=== PATIENT | male | born 1995 | race Caucasian/White ===

== ENCOUNTER 2022-01-19 15:30 | Emergency (ER) | payer BC, SELFPAY ==
[2022-01-19] VITALS (7 sets, daily range): BP systolic 125–148; BP diastolic 78–101; PULSE 57–86; RESP 16–18; TEMP 36.8; O2SAT 97–100; BMI 22.7
--- NOTE | 2022-01-19 15:38 | XRR_ITS ---
PROCEDURE INFORMATION: Exam: XR Chest Exam date and time: 01/19/2022 4:30 PM Age: 26 years old Clinical indication: Other: Vomiting blood TECHNIQUE: Imaging protocol: XR of the chest. Views: 1 view. COMPARISON: No relevant prior studies available. FINDINGS: Lungs: Unremarkable. No consolidation. Pleural spaces: Unremarkable. No pleural effusion. No pneumothorax. Heart/Mediastinum: Unremarkable. No cardiomegaly. Bones/joints: Unremarkable. XR/XR chest 1V portable [id number] IMPRESSION: No acute findings.
[2022-01-19 16:58] LABS: Basophils % 0.2 %; Eosinophils % 0.1 %; Hemoglobin 17.4 g/dL (11.7-16.6); Lymphocytes # 1.2 10^3/uL (0.8-4.8); Lymphocytes % 13.9 %; Mean Corpuscular HGB Conc 33.5 g/dL (30.0-36.0); Mean Corpuscular Hemoglobin 29.3 pg (28.0-34.0); Mean Corpuscular Volume 87.7 fl (80-94); Mean Platelet Volume 12.8 fL (7.4-10.4); Monocytes # 0.9 10^3/uL (0.2-0.9); Neutrophils # 6.38 10^3/uL (1.8-7.7); Neutrophils % 75.6 %; Nucleated Red Blood Cells % 0 %; Platelet Count 155 10^3/cmm (130-400); Red Blood Count 5.93 10^6/uL (4.1-5.3); Red Cell Distribution Width 12.6 % (12.1-15.1); White Blood Count 8.5 10^3/uL (4.0-10.0)
--- NOTE | 2022-01-19 17:06 | W.ED.GENADLT ---
HPI - General Adult General: Chief complaint: Abdominal Pain Stated complaint: Vomiting up blood Time Seen by Provider: 01/19/22 16:39 History of Present Illness: Patient is a 26-year-old male history of marijuana use who presents the emergency room for concerns of vomiting blood x3 episodes. Patient tells me that since Monday, he has been having generalized body ache. Addition, patient has an upper thoracic back pain for which she has been taking 800 mg of ibuprofen daily. Since starting to take ibuprofen, patient reports midepigastric Edouard pain and vomiting. Patient reports that he has been vomiting for last 4 days. However today, he has noticed 3 episodes of emesis with 3 clots. Patient also noticed that his stool has been darker than usual. Patient denies any fever/chills per report chronic cough and runny nose. Patient denies any chest pain, shortness of breath, palpitation, nausea/vomiting, decreased p.o. intake. Patient denies any IV drug use. Onset:7 days ago Duration:7 days Location:home Severity:moderate Associated symptoms: Reports malaise, nausea and vomiting; Deny chest pain, dyspnea, rash or palpitations Review of Systems Const: Reports: fatigue and malaise; Denies: fever(s) or chills Eyes: Denies: change in vision ENMT: Denies: mouth pain Card: Denies: chest pain or palpitations Resp: Denies: dyspnea or non-productive cough GI: Reports: abdominal pain, nausea and vomiting; Denies: diarrhea : Denies: dysuria Musc: Denies: extremity pain Skin/Breast: Denies: rash or new lesions Neuro: Denies: weakness in extremities Psych: Reports: other (Normal mood) [place]/Lymph: Denies: easy bruising PFS ED PFSH: Medical History No pertinent past medical history Social History Smoking and tobacco status: never smoked Alcohol intake: current Substance/Drug Use: current Other substance/drug use details: +marijuana Physical Exam Const: COMMON NORMALS: alert HENMT: COMMON NORMALS: atraumatic HEAD & SCALP: atraumatic MOUTH: moist mucous membranes not abnormal Eye: COMMON NORMALS: EOMs intact bilaterally and conjunctivae normal CONJUNCTIVA: Yes conjunctivae normal Neck/C-Spine: COMMON NORMALS: full ROM and supple Resp: COMMON NORMALS: normal respiratory effort and clear to auscultation bilaterally AUSCULTATION: clear to auscultation bilaterally Cardio: COMMON NORMALS: regular rate RATE: regular rate GI: COMMON NORMALS: Soft to palpation and non-tender PALPATION: Yes Soft to palpation OTHER: No focal TTP. NO guarding rebound, guarding, rigidity. No CVA tenderness to percussion. Neg Benoit/Neg McBurney's point tenderness, no suprabupic tenderness to palpation. +hemoocult positive brown stool Back/Pelvis: OTHER: + No focal tenderness to palpation midline on the bony prominences of cervical/thoracic/lumbar region Extremity: COMMON NORMALS: full ROM Neuro: SENSORIUM/ORIENTATION: Yes alert MOTOR EXAM: No Abnormal motor strength present and Other motor observations present (no focal motor deficits) Psych: COMMON NORMALS: speech normal SPEECH: Yes normal speech MOOD & AFFECT: Yes euthymic mood Course Vital Signs: Vital signs: Vital Signs Temperature 98.2 F 01/19/22 16:13 Pulse Rate 80 01/19/22 16:59 Respiratory Rate 16 01/19/22 16:59 Blood Pressure 147/101 01/19/22 17:29 Pulse Oximetry 97 01/19/22 17:29 MDM - General Adult Medical Decision Making 26-year-old male presenting to the emergency room with concerns for 3 episodes of hematemesis. Focal abdominal tenderness to palpation. Hemodynamically stable. Patient appears to be hemoconcentrated with hemoglobin 17.4. Patient received 2 L of fluid. Rectal exam is negative for melena but showed mild hemoocult positive stool. Received IVF, Pepcid, Protonix, GI cocktail with improvement symptom. Given the fact the patient has no melena or active vomiting of blood and with hemoconcentration of 17.2, I have given patient close follow-up with outpatient GI for reassessment. I have given patient follow up with our manager case management to be seen by our outpatient GI provider Dr. Buckley. Patient aware of a call from our manager case management to schedule for appointment(s) and verbalizes understanding of the importance of following up. Rx protonix for possible peptic ulcer Disposition: Discharge. Patient counseled regarding diagnostic impression, treatment plan. Patient given ED strict return precautions to return for continuation, worsening, or development of new symptoms. Instructed to f/u w/ PCP regarding symptoms today. Patient verbalized understanding. Lab Data : 01/19/22 16:52 01/19/22 16:52 Radiology Impressions Chest X-Ray 01/19/22 15:38 IMPRESSION: No acute findings. Laboratory Results WBC 8.5 10^3/uL (4.0-10.0) 01/19/22 16:52 RBC 5.93 10^6/uL (4.1-5.3) H 01/19/22 16:52 Hgb 17.4 g/dL (11.7-16.6) H 01/19/22 16:52 Hct 52.0 % (42.0-52.0) 01/19/22 16:52 MCV 87.7 fl (80-94) 01/19/22 16:52 MCH 29.3 pg (28.0-34.0) 01/19/22 16:52 MCHC 33.5 g/dL (30.0-36.0) 01/19/22 16:52 RDW 12.6 % (12.1-15.1) 01/19/22 16:52 Plt Count 155 10^3/cmm (130-400) 01/19/22 16:52 MPV 12.8 fL (7.4-10.4) H 01/19/22 16:52 Neut % (Auto) 75.6 % 01/19/22 16:52 Lymph % (Auto) 13.9 % 01/19/22 16:52 [place] % (Auto) 10.0 % 01/19/22 16:52 Eos % (Auto) 0.1 % 01/19/22 16:52 Baso % (Auto) 0.2 % 01/19/22 16:52 Neut # (Auto) 6.38 10^3/uL (1.8-7.7) 01/19/22 16:52 Lymph # (Auto) 1.2 10^3/uL (0.8-4.8) 01/19/22 16:52 [place] # (Auto) 0.9 10^3/uL (0.2-0.9) 01/19/22 16:52 Eos # (Auto) 0.0 10^3/uL (0.0-0.8) 01/19/22 16:52 Baso # (Auto) 0.0 10^3/uL (0.0-0.1) 01/19/22 16:52 Nucleated RBC % (auto) 0 % 01/19/22 16:52 Nucleated RBCs # 0.0 /100WBC 01/19/22 16:52 Sodium 137 mmol/L (136-145) 01/19/22 16:52 Sodium Cancelled 01/19/22 16:52 Potassium 3.8 mmol/L (3.5-5.1) 01/19/22 16:52 Potassium Cancelled 01/19/22 16:52 Chloride 98 mmol/L (98-107) 01/19/22 16:52 Chloride Cancelled 01/19/22 16:52 Carbon Dioxide 22 mmol/L (22-29) 01/19/22 16:52 Carbon Dioxide Cancelled 01/19/22 16:52 Anion Gap 20.8 (5-19) H 01/19/22 16:52 Anion Gap Cancelled 01/19/22 16:52 BUN 10 mg/dL (6-20) 01/19/22 16:52 BUN Cancelled 01/19/22 16:52 Creatinine 0.6 mg/dL (0.7-1.2) L 01/19/22 16:52 Creatinine Cancelled 01/19/22 16:52 GFR Calculation 164.2 mL/min (90-130) H 01/19/22 16:52 GFR Calculation Cancelled 01/19/22 16:52 Glucose 82 mg/dL (65-115) 01/19/22 16:52 Glucose Cancelled 01/19/22 16:52 Calculated Osmolality 282 mOsm/kg (285-295) L 01/19/22 16:52 Calculated Osmolality Cancelled 01/19/22 16:52 Calcium 9.6 mg/dL (8.5-10.5) 01/19/22 16:52 Calcium Cancelled 01/19/22 16:52 Total Bilirubin 1.4 mg/dL (0.15-1.2) H 01/19/22 16:52 AST 52 U/L (0-40) H 01/19/22 16:52 ALT 67 U/L (0-41) H 01/19/22 16:52 Alkaline Phosphatase 98 IU/L (40-130) 01/19/22 16:52 Total Protein 7.9 g/dL (6.6-8.7) 01/19/22 16:52 Albumin 4.9 g/dL (3.5-5.2) 01/19/22 16:52 Globulin 3.0 g/dL (1.3-4.6) 01/19/22 16:52 Lipase 11 U/L (13-60) L 01/19/22 16:52 Discharge Plan Discharge Patient Disposition: Home Clinical Impression: Symptom of blood in vomit Condition: Stable Prescriptions: New acetaminophen 500 mg tablet 500 mg PO Q6H PRN (Reason: pain) 5 Days Qty: 20 0RF pantoprazole [Protonix] 40 mg tablet,delayed release (DR/EC) 40 mg PO DAILY 42 Days Qty: 42 0RF Discharge Orders: Discharge ED (Routine); Ordered 01/19/22 Ordered By: Thi Cummings Referrals: Brittani Cooper MD [Primary Care Provider] - Discharge Diet: Advance as tolerated Discharge Activity: Increase activity as tolerated Patient Instructions: Hematemesis (ED) Activity Restrictions/Additional Instructions: Our manager case management will have you follow-up with GI in the next few days for reassessment and possible EGD. You would be expected to have a phone call with our manager case management who will put you on the schedule. You can expect a call from us in the next 2-3 days. If you don't hear from us, call us back in the emergency room at [phone]. Come back to the emergency room you have noticed any significant bleeding, vomiting blood, dark pasty stool, or any new concerning complaints. Please drink plenty of water. Please refrain from taking ibuprofen. Take tylenol instead. Stand Alone Forms: Work/School Release Coding Level of Care Code ED Diet Kitchen Cook for Jesse Fwd Exam Comprehensive
[2022-01-19] MEDS: famotidine 20 mg/2 mL INJ 40 MG IVP (17:39)
[2022-01-19] MEDS: pantoprazole 40 mg SDV IVP (17:39)
[2022-01-19] MEDS: sodium chloride 0.9% 1,000 ML 999 ML IV ×2 (17:40→19:06)
[2022-01-19 17:51] LABS: Alanine Aminotransferase 67 U/L (0-41); Albumin Level 4.9 g/dL (3.5-5.2); Alkaline Phosphatase 98 IU/L (40-130); Anion Gap 20.8 (5-19); Aspartate Amino Transferase 52 U/L (0-40); Blood Urea Nitrogen 10 mg/dL (6-20); Calcium 9.6 mg/dL (8.5-10.5); Carbon Dioxide 22 mmol/L (22-29); Chloride 98 mmol/L (98-107); Glomerular Filtration Rate 164.2 mL/min (90-130); Glucose 82 mg/dL (65-115); Lipase 11 U/L (13-60); Osmolality Calculated 282 mOsm/kg (285-295); Potassium 3.8 mmol/L (3.5-5.1); Sodium 137 mmol/L (136-145); Total Bilirubin 1.4 mg/dL (0.15-1.2); Total Protein 7.9 g/dL (6.6-8.7)
[2022-01-19] MEDS: lidocaine 2% viscous 15 ML, aluminum-mag hydrox-simethicon 30 ML, sucralfate oral liq 1 GM PO (19:06)
--- NOTE | 2022-01-20 12:27 | DCPLANNER ---
Addendum entered by Tammy Pickens 02/01/22 08:47: Patient had a follow up appointment scheduled for 01.25.22 with general surgery - patient did attend appointment. Addendum entered by Tammy Pickens 01/23/22 10:32: Patient has a follow up appointment scheduled for Tuesday, January 25, 2022 at 8:[address] Romero at general surgery. Clinic will call patient with appointment information. Original Note: technical sales support manager had message to schedule a follow up appointment for patient with general surgery. technical sales support manager sent patients information to the front office staff at general surgery. Patients information will be printed and reviewed. Clinic will call patient with appointment information.
== END 2022-01-19 20:40 | disposition home or self-care (01) ==
PROVIDERS: Emergency Provider Emergency Medicine; PCP Family Medicine
DX: K92.0 Hematemesis (principal)
CPT/HCPCS: 71045; 80053; 83690; 85025; 96361; 96374; 96375; 99284; C9113; J3490; J7030

== ENCOUNTER 2022-02-03 07:50 | Day surgery (SDC) | payer BC, SELFPAY ==
[2022-02-01 13:53] VITALS: BMI 22.7
[2022-02-03 08:07] VITALS: BP 110/69; PULSE 66; RESP 16; TEMP 36.4; O2SAT 97
[2022-02-03] MEDS: sodium chloride 0.9% 1,000 ML 30 ML IV (08:25)
--- NOTE | 2022-02-03 08:37 | ANES.PREANE2 ---
Pre-Anesthetic Assessment Height/Weight: Height 1.88 m Weight 80.286 kg Temp Pulse Resp BP Pulse Ox 97.5 F L 66 16 110/69 97 02/03/22 08:07 02/03/22 08:07 02/03/22 08:07 02/03/22 08:07 02/03/22 08:07 Preop Diagnosis: hematemesis Operation Date: 02/03/22 09:15 Proposed Procedures p EGD 14976,K92.0(Not Applicable) - Onofre Romero DO Familial anesthetic complications: None Was Beta Kamari taken within 24 hours: N/A Was Clonidine taken within 24 hours: N/A Last intake: Intake Last Liquid Date 02/02/22 Last Liquid Time 00:00 Last Solid Date 02/02/22 Last Solid Time 20:00 Social Tobacco and No alcohol Uses marijuana Exam alert, oriented x 3, clear to auscultation bilaterally and regular rate & rhythm Airway Submandibular: within normal limits Cervical ROM: within normal limits Mallampati: Class I Dentition: full Comments: Comments: Poor dentition History/ROS No significant complaints Pulmonary None reported CV/HEM None reported None reported Hepatic None reported GI Hematemesis Metabolic None reported Musc/skel None reported Neuropsych None reported Anesthetic Plan ASA status: 2 Anesthesia: Anesthesia Evaluation, General and MAC Other: I discussed with the patient risks, goals, and benefits of MAC and general anesthesia. We discussed spectrum of MAC anesthesia including conversion to general as well as possibility of recall of intraoperative stimuli including discomfort/pain. Patient agrees to proceed with MAC. Risk of > 500 ml blood loss (7ml/kg in children): No Medications/Allergies Home Medications Medication Instructions Recorded Confirmed Last Taken Type pantoprazole 40 mg tablet,delayed 40 mg PO DAILY PRN 02/01/22 02/03/22 01/27/22 History release (Protonix) Allergies Allergy/AdvReac Type Severity Reaction Status Date / Time No Known Allergies Allergy Verified 01/25/22 08:09 Current Medications Generic Name Dose Route Start Last Admin Trade Name Freq PRN Reason Stop Dose Admin Sodium Chloride 1,000 mls @ 30 mls/hr 02/03/22 08:15 02/03/22 08:25 Sodium Chloride 0.9% IV 02/04/22 08:14 30 mls/hr .Q24H ERASTO Administration PFSH Anesthesia Medical History No pertinent past medical history Surgical History History of left knee surgery Social History Smoking and tobacco status: current every day smoker Alcohol intake: current Data Anesthesia Cardiac Studies: No Data to Display
--- NOTE | 2022-02-03 10:01 | W.PM.OPSUD ---
Surgery/Procedure H&P Update DATE OF PROCEDURE: February 03, 2022 DATE H&P PERFORMED: 01/25/22 CHANGES TO PREVIOUS DOCUMENTATION: none PREOP DIAGNOSIS: hematemesis PLANNED PROCEDURE: Operation Date: 02/03/22 09:15 Proposed Procedures p EGD 37325,K92.0(Not Applicable) - Onofre Romero DO
[2022-02-03 10:16] VITALS: BP 110/56; PULSE 56; RESP 16; TEMP 36.4; O2SAT 95
--- NOTE | 2022-02-03 10:17 | ANE.PACU2 ---
Documented by User: Jing Yoder CRNA 02/03/22 10:17 Inpatient post-anesthesia follow up: Airway intact: Yes Vital signs: Temperature 97.5 F Pulse Rate 56 Respiratory Rate 16 Blood Pressure 110/56 Pulse Oximetry 95 Oxygen Delivery Me thod Room Air Oxygen Flow Rate Fraction of Inspir ed Oxygen Hydration adequate: Yes Nausea and vomiting: No Pain level: 1 Mental status: Baseline
[2022-02-03 10:31] VITALS: BP 108/76; PULSE 56; RESP 16; TEMP 36.6; O2SAT 98
== END 2022-02-03 10:45 | disposition home or self-care (01) ==
PROVIDERS: PCP Family Medicine; Visit Provider Surgery
PROC: 0DJ08ZZ Inspection of Upper Intestinal Tract, Via Natural or Artificial Opening Endoscopic (ICD-10-PCS; CPT 43235; principal; 2022-02-03 09:15)
DX: K92.0 Hematemesis (principal); K29.70 Gastritis, unspecified, without bleeding; K29.80 Duodenitis without bleeding; F17.210 Nicotine dependence, cigarettes, uncomplicated
CPT/HCPCS: 43239; 88305; J2704; J3010; J7030